=== PATIENT | male | born 1950 | race Caucasian/White ===

== ENCOUNTER 2025-02-01 11:06 | Outpatient (CLI) | payer MEDICARE, SELFPAY ==
--- NOTE | ~2025-02-01 | PE_ITS ---
EXAMINATION: PET_PETPSMAST_PT DATE: 02/01/2025 13:47 INDICATION: Prostate cancer TECHNIQUE: 5.66 mCi of Illucix Ga-68([id number]) was administered i.v. Low dose computed tomog peggy (CT) images were acquired from the base of the brain to the base of the brain to the proximal t highs for attenuation correction and anatomic localization. Positron emission tomography (PET) images were acquired in the same distribution beginning 101 minutes after injection. Images including fused PET/CT images were reconstructed in axial, coronal, and sagittal planes. Automated exposure control technique was employed. The dose-length product was 520.30mGy-cm. COMPARISON: None FINDINGS: Head/neck: Typical pattern of symmetric physiologic increased activity in the lacrimal, parotid and submandibula r glands as well as along the mucosa of the nasal and oral cavities, pharynx and hypopharynx. No path ologically enlarged cervical lymphadenopathy or suspicious foci of increased uptake in the visualized head or neck. Chest: Emphysema with mild biapical pleural-parenchymal scarring. Small calcified right lower lobe nodule an d calcified right hilar and mediastinal lymph nodes consistent with old granulomatous disease. No josephine picious pulmonary nodules, pneumonia, pulmonary edema or pleural effusion. Heart size is normal. Athe rosclerotic coronary artery calcification is. No pericardial effusion. Thoracic aorta is normal in ca liber. No pathologically enlarged or PSMA avid thoracic lymphadenopathy. Abdomen/pelvis/proximal thighs: Physiologic renal accumulation and excretion of activity in the kidneys, bladder and along portions o f ureters. Sorenson catheter within the normal partially decompressed bladder. Prostatomegaly measuring 5.4 x 4.4 cm. There confluent foci of increased PSV may activity in the bladder including centrally a long the right and posterior aspect of the prostate with maximal SUV of 17.4 consistent with primary prostate cancer. Normal degree and slightly heterogenous pattern of increased uptake throughout the l iver and spleen without radiologic correlate or dominant PSMA avid lesion. Large rim calcified gallst one in the otherwise normal gallbladder. The pancreas and bilateral adrenal glands are normal. Modera te uptake scattered throughout the bowels with typical duodenal and proximal jejunal predominance and without radiologic correlate, also likely physiologic. No other abnormal foci of increased uptake or pathologically enlarged lymphadenopathy in the abdomen, pelvis or proximal thighs. Musculoskeletal: There are couple PSMA avid and peripherally sclerotic lesions at the posterior basicervical left femu r, the larger more cephalad measuring 1.1 cm with maximal SUV of 12 and the more caudal measuring 6 m m with maximal SUV of 24.3. 1.7 cm peripherally sclerotic lesion at the lateral left inferior pubic r amus with maximal SUV of 18.9. Finally there is increased activity with maximal SUV of 18.6 associate d with a couple approximately 5 mm region of sclerosis at the right posterior iliac spine. These lesi ons are all consistent with metastatic disease. IMPRESSION: 1. Multiple confluent regions of increased uptake in the enlarged prostate consistent with primary pr ostate cancer. 2. 4 sclerotic PSMA avid bone lesions at the proximal left femur, left inferior pubic ramus and right posterior iliac spine consistent with metastatic disease. 3. Cholelithiasis. Reviewed, dictated and finalized at location B. REMOVER IMPRESSION: 1. Multiple confluent regions of increased uptake in the enlarged prostate cons istent with primary prostate cancer. 2. 4 sclerotic PSMA avid bone lesions at the proximal left femur, left inferior pubic ramus and right posterior iliac spine consistent with metastatic disease . 3. Cholelithiasis.
--- OUTSIDE RECORDS SUMMARY | 2025-02-01 12:50 | XMS_ITS | Clinical Summary ---
Author Organization [facility] Address [address] [place] [address] Care Team Providers Care Project Development Manager Name Role Phone JOSR Nugent Angela Primary Care Provider Allergies No known active allergies Medications rosuvastatin (CRESTOR) 5 MG tabletIndications :Aortic calcification (CMS/HCC),Coronar y artery calcification Take 1 tablet (5 mg total) by mouth nightly at bedtime. 30 tablet 11/08/20 24 Active calcium, elemental, 600 MG tabletIndications :Osteoporosis Take 1-2 (600-1200mg) daily 11/08/20 24 Active alendronate (FOSAMAX) 70 MG tabletIndications :Osteoporosis Take 1 tablet (70 mg total) by mouth every 7 days. Take on an empty stomach and remain upright for at least 30 minutes after taking. 12 tablet 3 11/17/20 24 Active Multiple Vitamin (MULTIVITAMIN ADULT OR) Take 1 tablet by mouth daily. Active amLODIPine (NORVASC) 5 MG tabletIndications :Benign essential hypertension Take 1 tablet (5 mg total) by mouth daily. OFFICE VISIT DUE FOR FURTHER REFILLS. Please schedule appt. Soon for med. Management! 30 tablet 01/14/20 25 Active tamsulosin (FLOMAX) 0.4 MG CapIndications:Re tention of urine,Enlarged prostate Take 1 capsule (0.4 mg total) by mouth daily. OFFICE VISIT DUE FOR FURTHER REFILLS. Please sched. Appt. Soon for med. Management! 30 capsule 01/14/20 25 Active amLODIPine (NORVASC) 5 MG tablet Take 1 tablet (5 mg total) by mouth daily. 30 tablet 2 10/21/20 24 025 Discontinued tamsulosin (FLOMAX) 0.4 MG CapIndications:Re tention of urine,Enlarged prostate Take 1 capsule (0.4 mg total) by mouth daily. 30 capsule 2 10/21/20 025 Discontinued Active Problems Problem Noted Date Diagnosed Date Current smoker 10/28/2024 Benign essential hypertension 10/28/2024 Systolic murmur 10/28/2024 Enlarged prostate 10/28/2024 TATA (acute kidney injury) 10/18/2024 Acute renal failure (ARF) 10/18/2024 Resolved Problems Problem Noted Date Diagnosed Date Resolved Date Screening for colon cancer 12/21/2024 0 12/26/2024 Encounters Date Type Department Care Team Description 01/23/2025 Patient Outreach [facility] [address] [place] [address] Bree Turner, MATHEMATICS TECHNICIAN ER F/U 01/21/2025 8:38 AM PROGRAM ANALYST - 01/21/2025 9:54 AM PROGRAM ANALYST Emergency [facility] Emergency Services [address] [place] [address] González Morales DO Urinary Catheter Problem (Pt states that it feels like he is unable to urinate. Has fernandez cath.) Discharge Disposition: Home or Self Care (Routine Discharge) 01/21/2025 Travel 01/09/2025 3:01 PM PROGRAM ANALYST - 01/09/2025 4:10 PM PROGRAM ANALYST Surgery [facility] [place] [address] Ace Michael MD DIAGNOSITC FLEXIBLE CYSTOSCOPY 01/09/2025 2:04 PM PROGRAM ANALYST Anesthesia Event [facility] [place] [address] Dre Horton MD Jarvis, Brittany L, CNP 01/09/2025 11:27 AM PROGRAM ANALYST - 01/09/2025 3:55 PM PROGRAM ANALYST Hospital Encounter [facility] [place] [address] Ace Michael MD Discharge Disposition: Home or Self Care (Routine Discharge) 01/09/2025 Travel 12/29/2024 Travel 12/21/2024 Telephone [facility] - [address], [address] [place] [address] Molina Shaffer MD Schedule Procedure 12/20/2024 3:00 PM PROGRAM ANALYST Office Visit [facility] [address] [phone] Carlito Li V, [facility]- Molina Shaffer MD Consult For Colonoscopy 12/20/2024 Travel 11/17/2024 1:45 PM PROGRAM ANALYST Office Visit [facility] [phone] Bernardino Blanco, TELEVISION DIRECTOR Follow Up 11/17/2024 Orders Only [facility] [address] [place] [address] Erica Jade, DIAL REFINISHER 11/17/2024 Travel 11/17/2024 Orders Only [facility] [address] [place] [address] Erica Jade, DIAL REFINISHER 11/15/2024 1:14 PM PROGRAM ANALYST - 11/15/2024 11:59 PM PROGRAM ANALYST Hospital Encounter [facility] [address] [place] [address] Carlito Li FNP-[place]AS[place] Discharge Disposition: Home or Self Care (Routine Discharge) 11/15/2024 Travel 11/11/2024 2:40 PM PROGRAM ANALYST Allied Health/Nurse Visit [address] [place], [place] [id number] Bhavin Li MD Catheter Problem (Pt is here for the taping on his catheter is loose, nurse fixed and taped it better ) 11/11/2024 Travel 11/08/[address] [place] [address] Carlito Li V, CHILD AND YOUTH PROGRAM ASSISTANT-BC Results 11/07/2024 12:45 PM PROGRAM ANALYST - 11/07/2024 11:59 PM PROGRAM ANALYST Hospital Encounter [facility] Ultrasound [address] [place] [address] Carlito Li V, CHILD AND YOUTH PROGRAM ASSISTANT-BC Discharge Disposition: Home or Self Care (Routine Discharge) 11/07/2024 Travel 11/04/2024 Orders Only [facility] Laboratory [address] [place] [address] Erica Jade LPN from Last 3 Months Family History Medical History Relation Comments Diabetes Brother Diabetes Daughter Diabetes Father Heart Disease Father Diabetes Mother Diabetes Sister Relation Status Comments Brother Alive Daughter Alive Father Mother Sister Alive Social History Tobacco Use Types Packs/Day Years Used Date Smoking Tobacco: Every Day Cigarettes 1 50.2 Started: 11/30/1974 Smokeless Tobacco: Never Tobacco Cessation:Ready to Q uit: No; Counseling Given: Yes Alcohol Use Standard Drinks/Week Comments Yes 7 (1 standard drink = 0.6 oz pur e alcohol) [facility] [employer] Answer Date Recorded In the past 12 months has e electric, gas, oil, or water [employer] threatened to shut off services in your home? No 10/18/2024 Humiliation, Afraid, Rape, and Kick questionnair e Answer Date Recorded Within the last year, have y ou been afraid of your partner or ex-partner? No 10/18/2024 Within the last year, have y ou been humiliated or emotionally abused in other ways by your partner or ex-partner? No Within the last year, have y ou been kicked, hit, slapped, or otherwise physically hurt by your partner or ex-partner? No 10/18/2024 Within the last year, have y ou been raped or forced to have any kind of sexual activity by your partner or ex-partner? No 10/18/2024 Overall Financial Resource Strain (CARDIA) Answe r Date Recorded How hard is it for you to pa y for the very basics like food, housing, medical care, and heating? Not hard at all 10/18/2024 PHQ-2 Answer Date Recorded Patient Health Questionnaire-2 Score 0 10/25/2024 Hunger Vital Sign Answer Date Recorded Within the past 12 months, y ou worried that your food would run out before you got the money to buy more. Never true 10/18/20 24 Within the past 12 months, t he food you bought just didn't last and you didn't have money to get more. Never true 10/18/2024 PRAPARE - Transportation Answer Date Re corded In the past 12 months, has l ack of transportation kept you from medical appointments or from getting medications? No 09/30 In the past 12 months, has l ack of transportation kept you from meetings, work, or from getting things needed for daily living? No 10/18/2024 Housing Stability Vital Sign Answer Wei e Recorded In the last 12 months, was t here a time when you were not able to pay the mortgage or rent on time? No 10/18/2024 In the past 12 months, how m any times have you moved where you were living? 0 10/18/2024 At any time in the past 12 m onths, were you homeless or living in a senior living (including now)? No 10/18/2024 Sex and Gender Information Value Date Recorded Sex Assigned at Male 01/09/2025 11:26 AM PROGRAM ANALYST Legal Sex Male 7:54 AM CDT Gender Identity Not on file Sexual Orientation Not on file Last Filed Vital Signs Vital Sign Reading Time Taken Comments Blood Pressure 158/81 01/21/2025 8:41 AM PROGRAM ANALYST Pulse 101 01/21/2025 8:41 AM PROGRAM ANALYST Temperature 36.1 C (97 F) 01/21/2025 8:41 AM PROGRAM ANALYST Respiratory Rate 16 01/21/2025 8:41 AM PROGRAM ANALYST Oxygen Saturation 99% 01/21/2025 8:41 AM PROGRAM ANALYST Inhaled Oxygen Concentration - - Weight 56.2 kg (124 lb) 01/21/2025 8:41 AM PROGRAM ANALYST Height 172.7 cm (5' 8 ) 01/21/2025 8:41 AM PROGRAM ANALYST Body Mass Index 18.85 01/21/2025 8:41 AM PROGRAM ANALYST Plan of Treatment Upcoming Encounters Date Type Department Care Team (Late st Contact Info) Description 04/18/2025 11:50 AM CDT Hospital Encounter [facility] Surgical Services [address] [address] Molina Shaffer MD [address] [facility] [address] [place] [address] 04/18/2025 11:50 AM CDT - 04/18/2025 12:23 PM CDT Surgery [facility] Surgical Services [address] [place] [address] Molina Shaffer MD [facility] [address] [place] [address] COLONOSCOPY SCREENING 05/09/2025 9:00 AM CDT Appointment [facility] CT [address] [address] Carlito Li V, [facility] [address] [facility] [place] [address] Scheduled Procedures Name Priority Associated Diagnoses Date/Ti me COLONOSCOPY SCREENING Screening for colon cancer 04/18/2025 11:50 AM CDT Health Maintenance Due Date Last Done Comments Colorectal Cancer Screening Colonoscopy (10 Years) 1950 Pneumococcal Vaccine: 65+ Years (1 of 2 - PCV) 1958 DTaP, Tdap and Td Vaccines ( 1 - Tdap) 1971 Zoster Vaccines (1 of 2) 2002 RSV Immunization or 60+ Years (1 - Risk 60-74 years 1-dose series) 2012 Annual Medicare Wellness Visit 2017 COVID-19 Vaccine (3 - 2023-2 5 season) 2024 07/12/2021, 06/14/2021 Influenza Adult (#1) 2024 PHQ-2 (Physician [place]) 11/30/2024 10/25/2024 Lung Cancer Screening 11/02/2025 11/02/2024 , 10/18/2024 AAA SCREENING Completed 11/02/2024, 10/18/2024, 10/18/2024 Hepatitis C Completed 11/02/2024 Meningococcal B Vaccine Aged Out No l onger eligible based on patient's age to complete this topic Meningococcal Vaccine Aged Out No sonja mario eligible based on patient's age to complete this topic RSV Immunizations Under 20 Months Aged Out No longer eligible b ased on patient's age to complete this topic Procedures Procedure Name Priority Date/Time Associated Diagnosis Comments US GUIDE NEEDLE PLCMT 01/09/2025 2:03 PM PROGRAM ANALYST PSA ELEVATION; BENIGN PROSTATIC HYPERPLASIA WITH URINARY OBSTRUCTION; ACUTE KIDNEY INJURY R97.20; N40.1; N17.9; R33.9 Case Notes SCHED BY FAX ON 12/21/24 [facility] PHONE ASSESS Special Needs FORTEC # [id number] US TRANSRECTAL 01/09/2025 2:03 PM PROGRAM ANALYST PSA ELEVATION; BENIGN PROSTATIC HYPERPLASIA WITH URINARY OBSTRUCTION; ACUTE KIDNEY INJURY R97.20; N40.1; N17.9; R33.9 Case Notes SCHED BY FAX ON 12/21/24 [facility] PHONE ASSESS Special Needs FORTEC # [id number] BIOPSY OF PROSTATE,NEEDLE/PUNCH 01/09/2025 2:03 PM PROGRAM ANALYST PSA ELEVATION; BENIGN PROSTATIC HYPERPLASIA WITH URINARY OBSTRUCTION; ACUTE KIDNEY INJURY R97.20; N40.1; N17.9; R33.9 Case Notes SCHED BY FAX ON 12/21/24 [facility] PHONE ASSESS Special Needs FORTEC # [id number] CYSTOURETHROSCOPY 01/09/2025 2:0 3 PM PROGRAM ANALYST PSA ELEVATION; BENIGN PROSTATIC HYPERPLASIA WITH URINARY OBSTRUCTION; ACUTE KIDNEY INJURY R97.20; N40.1; N17.9; R33.9 Case Notes SCHED BY FAX ON 12/21/24 [facility] PHONE ASSESS Special Needs FORTEC # [id number] PATHOLOGY Routine 01/09/2025 12:00 AM PROGRAM ANALYST BONE DENSITY/DEXA Routine 11/15/2024 1:3 0 PM PROGRAM ANALYST Osteoporosis USE ECHOCARDIOGRAM Routine 11/07/2024 1: 16 PM PROGRAM ANALYST Systolic murmur Enlarged aorta (CMS/HCC) US AAA SCREENING Routine 11/02/2024 8:10 AM PROGRAM ANALYST Encounter for abdominal aortic aneurysm (AAA) screening HEPATITIS C ANTIBODY Routine 11/02/2024 8:10 AM PROGRAM ANALYST Need for hepatitis C screening test CT LUNG SCREENING Routine 11/02/2024 7:5 4 AM PROGRAM ANALYST Encounter for screening for lung cancer Personal history of nicotine dependence from Last 3 Months or Most Recently Relevant to Health Maintenance Results * Pathology (01/09/2025 12:00 AM PROGRAM ANALYST) PATHOLOGY [facility] Department of Laboratory Medicine [address] [place] [phone] , extension [phone] Pathology Report Surgical Pathology Report Name: SEEMA BLAND Specimen #: [id number] Age: 8 1950 (Age: 74) Location: [facility] Sex: M Procedure Date: 01/09/2025 Hospital #: [id number] Date Received: 01/10/2025 Date Reported: 01/11/2025 Provider: ACE MICHAEL MD Source: A: Prostate, right lateral base, needle biopsy B: Prostate, right medial base, needle biopsy C: Prostate, right lateral mid, needle biopsy D: Prostate, right medial mid, needle biopsy E: Prostate, right lateral apex, needle biopsy F: Prostate, right medial apex, needle biopsy G: Prostate, left lateral base, needle biopsy H: Prostate, left medial base, needle biopsy I: Prostate, left lateral mid, needle biopsy J: Prostate, left medial mid, needle biopsy K: Prostate, left lateral apex, needle biopsy L: Prostate, left medial apex, needle biopsy Clinical History: PSA elevation, benign prostatic hyperplasia with urinary obstruction, and acute kidney injury. FINAL DIAGNOSIS: A. Prostate, right lateral base, core biopsy: -Acinar adenocarcinoma (conventional/usua l type), grade Group 2 (Bill score 3+4 = 7, 20% pattern 4), involving 1 of 1 tissue cores, 50%. -Perineural invasion is present. -No periprostatic fat invasion is identified. B. Prostate, right medial base, core biopsy: -Acinar adenocarcinoma (conventional/usua l type), grade Group 2 (Daykin score 3+4 = 7, 10% pattern 4), involving 1 of 1 tissue cores, 40%. -Perineural invasion is present. -Periprostatic fat invasion is present. C. Prostate, right lateral mid, core biopsy: -Acinar adenocarcinoma (conventional/usua l type), grade Group 3 (Daykin score 4+3 = 7, 60% pattern 4), involving 1 of 1 tissue cores, 90%. -Perineural invasion is present. -No periprostatic fat invasion is identified. D. Prostate, right medial mid, core biopsy: -Acinar adenocarcinoma (conventional/usua l type), grade Group 2 (Bill score 3+4 = 7, 30% pattern 4), involving 1 of 1 tissue cores, 90%. -Perineural invasion is present. -No periprosthetic fat invasion is identified. E. Prostate, right lateral apex, core biopsy: -Acinar adenocarcinoma (conventional/usua l type), grade Group 3 (Bill score 4+3 = 7, 90% pattern 4), involving 1 of 1 tissue cores, 80%. -No perineural invasion is identified. -No periprostatic fat invasion is identified. F. Prostate, right medial apex, core biopsy: -Acinar adenocarcinoma (conventional/usua l type), grade Group 3 (Daykin score 4+3 = 7, 75% pattern 4), involving 1 of 1 tissue cores, 95%. -No perineural invasion is identified. -No periprostatic fat invasion is identified. G. Prostate, left lateral base, core biopsy: -Acinar adenocarcinoma (conventional/usua l type), grade Group 2 (Bill score 3+4 = 7, 20% pattern 4), involving 1 of 1 tissue cores, 50%. -Perineural invasion is present. -No periprostatic fat invasion is identified. H. Prostate, left medial base, core biopsy: -Acinar adenocarcinoma (conventional/usua l type), grade Group 2 (Daykin score 3+4 = 7, 10% pattern 4), involving 1 of 1 tissue cores, 90%. -Perineural invasion is present. -No periprostatic fat invasion is identified. I. Prostate, left lateral mid, core biopsy: -Acinar adenocarcinoma (conventional/usua l type), grade Group 3 (Daykin score 4+3 = 7, 60% pattern 4), involving 1 of 1 tissue cores, 50%. -Perineural invasion is present. -No periprostatic fat invasion is identified. J. Prostate, left medial mid, core biopsy: -Acinar adenocarcinoma (conventional/usua l type), grade Group 2 (Bill score 3+4 = 7, 20% pattern 4), involving 1 of 1 tissue cores, 90%. -Perineural invasion is present. -No periprosthetic fat invasion is identified. K. Prostate, left lateral apex, core biopsy: -Acinar adenocarcinoma (conventional/usua l type), grade Group 2 (Daykin score 3+4 = 7, 10% pattern 4), involving 1 of 1 tissue cores, 75%. -No perineural invasion is identified. -No periprostatic fat invasion is identified. L. Prostate, left medial apex, core biopsy: -Acinar adenocarcinoma (conventional/usua l type), grade Group 2 (Bill score 3+4 = 7, 10% pattern 4), involving 1 of 1 tissue cores, 75%. Per -Perineural invasion is present. -No periprostatic fat invasion is identified. Gross Description: A. Received in formalin, labeled with a patient label and as right lateral base is a single less than 0.1 cm in diameter delicate white-atkinson tissue core that is 1.5 cm in length. The specimen is entirely submitted in cassette A1. B. Received in formalin, labeled with a patient label and as right medial base is a single less than 0.1 cm in diameter delicate white-atkinson tissue core that is 1.5 cm in length. The specimen is entirely submitted in cassette B1. C. Received in formalin, labeled with a patient label and as right lateral mid is a single less than 0.1 cm in diameter delicate white-atkinson tissue core that is 2.0 cm in length. The specimen is entirely submitted in cassette C1. D. Received in formalin, labeled with a patient label and as right medial mid is a single less than 0.1 cm in diameter delicate white-atkinson tissue core 1.5 cm in length. The specimen is entirely submitted in cassette D1. E. Received in formalin, labeled with a patient label and as right lateral apex is a single less than 0.1 cm in diameter delicate white-atkinson tissue core that is 0.8 cm in length. The specimen is entirely submitted in cassette E1. F. Received in formalin, labeled with a patient label and as right medial apex is a single less than 0.1 cm in diameter delicate white-atkinson tissue core that is 1.5 cm in length. The specimen is entirely submitted in cassette F1. G. Received in formalin, labeled with a patient label and as left lateral base are 2 less than 0.1 cm in diameter delicate white-atkinson tissue cores 1.3 and 0.3 cm in length. The specimen is entirely submitted in cassette G1. H. Received in formalin, labeled with a patient label and as left medial base is a single less than 0.1 cm in diameter delicate white-atkinson tissue core that is 1.2 cm in length. The specimen is entirely submitted in cassette H1. I. Received in formalin, labeled with a patient label and as left lateral mid is a less than 0.1 cm in diameter white-atkinson tissue core that is 1.2 cm in length. The specimen is entirely submitted in cassette I1. J. Received in formalin, labeled with a patient label and as left medial mid is a single less than 0.1 cm in diameter delicate white-atkinson tissue core that is 1.5 cm in length. The specimen is entirely submitted in cassette J1. K. Received in formalin, labeled with a patient label and as left lateral apex is a single less than 0.1 cm in diameter delicate white-atkinson tissue core 1.2 cm in length. The specimen is entirely submitted in cassette K1. L. Received in formalin, labeled with a patient label and as left medial apex is a single less than 0.1 cm in diameter delicate white-atkinson tissue core 1.2 cm in length. The specimen is entirely submitted in cassette L1. Gross examination (when applicable), interpretation, and sign out were performed at [facility], [address] [place] [address]. Electronically Signed Out NELSON NORRIS MD [facility] TISSUE PROSTATIC STRUCTURE / Unknown 01/09/2025 1:25 PM PROGRAM ANALYST Tissue specimen (specimen) PROSTATIC STRUCTURE / Unknown 01/09/2025 1:25 PM PROGRAM ANALYST Tissue specimen (specimen) PROSTATIC STRUCTURE / Unknown 01/09/2025 1:25 PM PROGRAM ANALYST Tissue specimen (specimen) PROSTATIC STRUCTURE / Unknown 01/09/2025 1:25 PM PROGRAM ANALYST Tissue specimen (specimen) PROSTATIC STRUCTURE / Unknown 01/09/2025 1:25 PM PROGRAM ANALYST Tissue specimen (specimen) PROSTATIC STRUCTURE / Unknown 01/09/2025 1:25 PM PROGRAM ANALYST Tissue specimen (specimen) PROSTATIC STRUCTURE / Unknown 01/09/2025 1:25 PM PROGRAM ANALYST Tissue specimen (specimen) PROSTATIC STRUCTURE / Unknown 01/09/2025 1:25 PM PROGRAM ANALYST Tissue specimen (specimen) PROSTATIC STRUCTURE / Unknown 01/09/2025 1:25 PM PROGRAM ANALYST Tissue specimen (specimen) PROSTATIC STRUCTURE / Unknown 01/09/2025 1:25 PM PROGRAM ANALYST Tissue specimen (specimen) PROSTATIC STRUCTURE / Unknown 01/09/2025 1:25 PM PROGRAM ANALYST Tissue specimen (specimen) PROSTATIC STRUCTURE / Unknown 01/09/2025 1:25 PM PROGRAM ANALYST us Ace Michael MD PATHOLOGY/CYTOLOGY ORDERABLES Fi nal Result [facility] [address] [place] [address], [id number] * BONE DENSITY/DEXA (11/15/2024 1:30 PM PROGRAM ANALYST) Anatomical Region Laterality Modality Bone Bone Density 11/17/2024 5:56 AM PROGRAM ANALYST Impressions 11/17/2024 5:57 AM PROGRAM ANALYST IMPRESSION: WHO Classification: Osteoporosis RECOMMENDATIONS: All patients should ensure an adequate intake of dietary calcium and vitamin D. The NOF recommend adults under the age of 50 need 1000 mg of calcium and 400-800 IU of vitamin D daily. Effective therapy for the prevention and treatment of osteoporosis include bisphosphonates. Follow-up: People with diagnosed cases of osteoporosis or at high risk for fracture should have regular bone mineral density test. For patients eligible for Medicare, routine testing is allowed once every 2 years. Testing frequency can be increased to one year for patients who have rapidly progressing disease, those who are receiving or discontinuing medical therapy to restore bone mass, or have additional risk factors. Referred By: CARLITO LI V Interpreted By: Royer Duong MD, 11/17/2024 5:56 AM Narrative 11/17/2024 5:57 AM PROGRAM ANALYST [facility] [address] [place] [address] EXAMINATION: BONE DENSITY/DEXA INDICATIONS: Osteoporosis TECHNIQUE: DEXA bone mineral density evaluation was performed in the AP projection over the lumbar spine and both hips utilizing standard imaging techniques. ASSESSMENT: The BMD measured at the AP spine L1-L4 is 1.033 g/cm? with a T-score of -0.5. The BMD measured at the left femoral neck is 0.488 g/cm? with a T-score of -3.3. The BMD measured at the left hip is 0.751 g/cm? with a T-score of -1.9. The BMD measured at the right femoral neck is 0.512 g/cm? with a T-score of - 3.1. The BMD measured at the right hip is 0.658 g/cm? with a T-score of -2.5. FRAX 10-year fracture risk: Not reported because some T scores are at or below -2.5 Procedure Note Royer Duong MD - 11/17/2024 [facility] [address] [place] [address] EXAMINATION: BONE DENSITY/DEXA INDICATIONS: Osteoporosis TECHNIQUE: DEXA bone mineral density evaluation was performed in the APprojection over the lumbar spine and both hips utilizing standard imagingtechniques. ASSESSMENT: The BMD measured at the AP spine L1-L4 is 1.033 g/cm? with a T-score of-0.5. The BMD measured at the left femoral neck is 0.488 g/cm? with a T-score of-3.3. The BMD measured at the left hip is 0.751 g/cm? with a T-score of -1.9. The BMD measured at the right femoral neck is 0.512 g/cm? with a T-scoreof -3.1. The BMD measured at the right hip is 0.658 g/cm? with a T-score of -2.5. FRAX 10-year fracture risk: Not reported because some T scores are at or below -2.5 IMPRESSION: WHO Classification: Osteoporosis RECOMMENDATIONS: All patients should ensure an adequate intake of dietary calcium andvitamin D. The NOF recommend adults under the age of 50 need 1000 mg ofcalcium and 400-800 IU of vitamin D daily. Effective therapy for theprevention and treatment of osteoporosis include bisphosphonates. Follow-up: People with diagnosed cases of osteoporosis or at high risk for fractureshould have regular bone mineral density test. For patients eligible forMedicare, routine testing is allowed once every 2 years. Testing frequencycan be increased to one year for patients who have rapidly progressingdisease, those who are receiving or discontinuing medical therapy torestore bone mass, or have additional risk factors. Referred By: CARLITO LI V Interpreted By: Royer Duong MD, 11/17/2024 5:56 AM us Carlito Li V, CHILD AND YOUTH PROGRAM ASSISTANT-BC DEXA Final R esult * USE ECHOCARDIOGRAM (11/07/2024 1:16 PM PROGRAM ANALYST) Anatomical Region Laterality Modality Cardiac Ultrasound 11/07/2024 12:4 7 PM PROGRAM ANALYST Narrative 11/09/2024 12:48 PM PROGRAM ANALYST CELINE Ely.Name: Seema Bland.ID: [id number] .Date: 11/07/2024 Refer.MD: Mitra, [facility] Exam Time: 12:47:00 PM Study Type:MITRA Height: 68 in Weight: 121 lb BSA: 1.65 m2 Age: 8 1950,74Y Sex: M Pat. Stat.:Outpatient Reason for Study:ENLARGED ACENDING AORTA SEEN ON CT SCAN, MURMUR Procedures: 2D, M-mode, Doppler, Color Flow, Study performed at [facility], [place], [place] and interpreted by [facility]. ++++++++++++++++++++++++++++++++++++ SUMMARY: ++++++++++++++++++++++++++++++++++++ The left ventricular size is normal. The left ventricular systolic function is normal. Estimated left ventricular ejection fraction is 55-60%. Left ventricular diastolic function is normal. The right ventricle size is normal. The right ventricular function is normal. Aorta is normal. No significant valvular abnormalities. ++++++++++++++++++++++++++++++++++++ FINDINGS: ++++++++++++++++++++++++++++++++++++ LV: The left ventricular size is normal. The left ventricular systolic function is normal. Estimated left ventricular ejection fraction is 55-60%. Left ventricular diastolic function is normal. RV: The right ventricle size is normal. The right ventricular function is normal. LA: Left atrial size is normal. RA: The right atrial size is normal. ARTIE: No evidence of pericardial effusion. AO: Aorta is normal. PA: Unable to reliably quantitate pulmonary systolic pressure. SVn: Inferior vena cava is not assessable. AV: The aortic valve is trileaflet. There is no aortic stenosis. There is no evidence of aortic regurgitation. MV: The mitral valve is structurally normal. There is trace mitral regurgitation. PV: Pulmonic valve not well visualized. TV: The tricuspid valve appears structurally normal. There is trace tricuspid regurgitation. <Electronic Signature> 11/09/2024 12:48 PM To Xie M.D. Procedure Note To Xie MD - 11/09/2024 CELINE MANRIQUEZ Pat.Name: Seema Bland.ID: [id number] .Date: 11/07/2024 Refer.MD: Mitra, [facility] Exam Time: 12:47:00 PM Study Type:OUTREACH Height: 68 in Weight: 121 lb BSA: 1.65 m2 Age: 8 1950,74Y Sex: M Pat. Stat.:Outpatient Reason for Study:ENLARGED ACENDING AORTA SEEN ON CT SCAN, MURMUR Procedures: 2D, M-mode, Doppler, Color Flow, Study performed at [facility], [place], [place] and interpreted by [facility]. ++++++++++++++++++++++++++++++++++++ SUMMARY: ++++++++++++++++++++++++++++++++++++ The left ventricular size is normal. The left ventricular systolic function is normal. Estimated left ventricular ejection fraction is 55-60%. Left ventricular diastolic function is normal. The right ventricle size is normal. The right ventricular function is normal. Aorta is normal. No significant valvular abnormalities. ++++++++++++++++++++++++++++++++++++ FINDINGS: ++++++++++++++++++++++++++++++++++++ LV: The left ventricular size is normal. The left ventricular systolic function is normal. Estimated left ventricular ejection fraction is 55-60%. Left ventricular diastolic function is normal. RV: The right ventricle size is normal. The right ventricular function is normal. LA: Left atrial size is normal. RA: The right atrial size is normal. ARTIE: No evidence of pericardial effusion. AO: Aorta is normal. PA: Unable to reliably quantitate pulmonary systolic pressure. SVn: Inferior vena cava is not assessable. AV: The aortic valve is trileaflet. There is no aortic stenosis. There is no evidence of aortic regurgitation. MV: The mitral valve is structurally normal. There is trace mitral regurgitation. PV: Pulmonic valve not well visualized. TV: The tricuspid valve appears structurally normal. There is trace tricuspid regurgitation. <Electronic Signature> 11/09/2024 12:48 PM To Xie M.D. us Carlito Li V, CHILD AND YOUTH PROGRAM ASSISTANT-BC ECHO Final R esult * US AAA SCREENING (11/02/2024 8:10 AM PROGRAM ANALYST) Anatomical Region Laterality Modality NA Computed Tomogra phy, Other 11/02/2024 9:33 AM PROGRAM ANALYST Impressions 11/02/2024 9:38 AM PROGRAM ANALYST ===== IMPRESSION: ===== 1. No abdominal aortic aneurysm seen in the viewed portions of the aorta. Ectasia is noted with maximal diameter of 2.5 cm. 2. Elevated velocities in the common iliac arteries bilaterally. Some narrowing in these areas is possible. CTA may better evaluate luminal diameter clinically indicated. Ordered By: CARLITO LI V Interpreted By: Ruben Lopez MD, 11/02/2024 9:33 AM Narrative 11/02/2024 9:38 AM PROGRAM ANALYST [address] [place] [address] EXAMINATION: Ultrasound abdominal aorta EXAM DATE/TIME: 11/02/2024 7:53 AM REASON FOR EXAM: screening COMPARISON: 10/18/2024 TECHNIQUE: Transabdominal ultrasound evaluation of the abdominal aorta was performed for analysis of grayscale and color Doppler imaging characteristics. FINDINGS: Abdominal aorta: Proximal aorta measures: 2.2cm X 2.5cm. Mid aorta measures 1.9cm X 2.1cm. Distal aorta measures 1.8cm X 1.6cm.. The left common iliac artery measures 0.7 x 0.6 cm. The right common iliac artery measures 0.7 x 0.7 cm. Velocity in the right common iliac artery measures approximately 214 cm/s. Velocity in the left common iliac artery measures 173 cm/s. Procedure Note Ruben Lopez MD - 11/02/[address] [place] [address] EXAMINATION: Ultrasound abdominal aorta EXAM DATE/TIME: 11/02/2024 7:53 AM REASON FOR EXAM: screening COMPARISON: 10/18/2024 TECHNIQUE: Transabdominal ultrasound evaluation of the abdominal aorta wasperformed for analysis of grayscale and color Doppler imagingcharacteristics. FINDINGS: Abdominal aorta: Proximal aorta measures: 2.2cm X 2.5cm. Mid aortameasures 1.9cm X 2.1cm. Distal aorta measures 1.8cm X 1.6cm.. The left common iliac artery measures 0.7 x 0.6 cm. The right common iliacartery measures 0.7 x 0.7 cm. Velocity in the right common iliac arterymeasures approximately 214 cm/s. Velocity in the left common iliac arterymeasures 173 cm/s. ===== IMPRESSION: ===== 1. No abdominal aortic aneurysm seen in the viewed portions of the aorta.Ectasia is noted with maximal diameter of 2.5 cm. 2. Elevated velocities in the common iliac arteries bilaterally. Somenarrowing in these areas is possible. CTA may better evaluate luminaldiameter clinically indicated. Ordered By: CARLITO LI V Interpreted By: Ruben Lopez MD, 11/02/2024 9:33 AM us Carlito Li V, CHILD AND YOUTH PROGRAM ASSISTANT-BC ULTRASOUND Final R esult * HEPATITIS C ANTIBODY (11/02/2024 8:10 AM PROGRAM ANALYST) HEPATITIS C AB NON-REACTI VE NON-REACTI VE 11/02/2024 3:45 PM PROGRAM ANALYST [facility] 11/02/2024 8:10 AM PROGRAM ANALYST us [facility] Final R esult [facility] [address] [place] [address], [place] [phone] * CT LUNG SCREENING (11/02/2024 7:54 AM PROGRAM ANALYST) Anatomical Region Laterality Modality Chest Computed Tomogra phy 11/08/2024 5:11 AM PROGRAM ANALYST Impressions 11/08/2024 5:17 AM PROGRAM ANALYST IMPRESSION: 1. LUNG-RADS category 3: Probably benign mucus plug is accumulating in the distal bronchiole of left upper lobe (series 8 image 37) since 10/18/2024. Other small secretions in airways. Attention on followup. RECOMMENDATIONS: Follow-up LDCT Chest in 3-6 months. Referred By: CARLITO LI V Interpreted By: Ton Millard MD, 11/08/2024 5:11 AM Narrative 11/08/2024 5:17 AM PROGRAM ANALYST [address] [place] [address] EXAM: LUNG SCREENING LOW-DOSE CT THORAX WITHOUT CONTRAST DATE: 11/02/2024 HISTORY: Asymptomatic patient meeting NCCN high-risk criteria for lung screening. Smoking history. Pack years: 45+ COMPARISON: 10/18/2024 TECHNIQUE: Noncontrast, helical, low-dose CT (LDCT) chest per standard departmental protocol. Automated exposure control was utilized for dose reduction. FINDINGS: Lung Screening Specific (LUNG-RADS): Old granulomata. [place] 8.5 mm smooth mucus plug in distal bronchiole of left upper lobe, series 8 image 37. It is bigger than the 3 mm size on 10/18/2024. Potentially Significant Incidentals (LUNG-RADS category S): None. Pulmonary Incidentals: COPD. Mild scarring. Mild secretions. Other Incidentals: Aortic calcifications. Coronary artery calcifications. Degeneration in spine.. Osteoporosis. Small right kidney stone. Procedure Note Ton Millard MD - 11/08/[address] [place] [address] EXAM: LUNG SCREENING LOW-DOSE CT THORAX WITHOUT CONTRAST DATE: 11/02/2024 HISTORY: Asymptomatic patient meeting NCCN high-risk criteria for lungscreening. Smoking history. Pack years: 45+ COMPARISON: 10/18/2024 TECHNIQUE: Noncontrast, helical, low-dose CT (LDCT) chest per standarddepartmental protocol. Automated exposure control was utilized for dosereduction. FINDINGS: Lung Screening Specific (LUNG-RADS): Old granulomata. [place] 8.5 mm smooth mucus plug in distal bronchiole of left upper lobe,series 8 image 37. It is bigger than the 3 mm size on 10/18/2024. Potentially Significant Incidentals (LUNG-RADS category S): None. Pulmonary Incidentals: COPD. Mild scarring. Mild secretions. Other Incidentals: Aortic calcifications. Coronary artery calcifications. Degeneration in spine.. Osteoporosis. Small right kidney stone. IMPRESSION: 1. LUNG-RADS category 3: Probably benign mucus plug is accumulating in thedistal bronchiole of left upper lobe (series 8 image 37) since 10/18/2024.Other small secretions in airways. Attention on followup. RECOMMENDATIONS: Follow-up LDCT Chest in 3-6 months. 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
== END 2025-02-01 11:07 | disposition home or self-care (01) ==
PROVIDERS: Visit Provider Urology
DX: C61 Malignant neoplasm of prostate (principal); K80.20 Calculus of gallbladder without cholecystitis without obstruction; M89.9 Disorder of bone, unspecified
CPT/HCPCS: 78815; A9596